=== PATIENT | male | born 1985 | race African-American/Black ===

== ENCOUNTER 2023-12-05 16:00 | Emergency (ER) | payer SELFPAY, OTHER ==
[2023-12-05] MEDS ORDERED: Acetaminophen 500 MG TAB ONE ×2 (17:30→17:33)
[2023-12-05 18:20] LABS: SARS-CoV-2 NAA Rapid Test Not Detected (NotDetected)
== END 2023-12-05 18:48 | disposition home or self-care (01) ==
LOC: CSHERS 16:00
DX: J10.1 Influenza due to other identified influenza virus with other respiratory manifestations (principal); F17.210 Nicotine dependence, cigarettes, uncomplicated
CPT/HCPCS: 0241U; 99284